=== PATIENT | female | born 1980 | race Caucasian/White ===

== ENCOUNTER 2016-12-07 10:30 | Emergency (ER) | payer OTHER ==
--- NOTE | 2016-12-07 11:49 | ER Document Report ---
HPI - HPI Patient complains to provider of: left hand pain Onset: Yesterday Onset/Duration: Persistent Quality of pain: Sharp Severity: Mild Pain Level: 2 Context: Patient presents emergency department with complaints of left dorsal pain that radiates up into her elbow. She reports she was opening some sausage yesterday with a knife and poked herself in the hand. She reports since that time she has had pain there and it radiates up into her elbow. No signs of infection. No erythema, warmth, swelling. Wound is closed. She has full range of motion, strong rn patient care, extension and flexion, she reports her tetanus is up-to-date. She denies other symptoms such as fever vomiting diarrhea. She has taken ibuprofen last night without relief of sx. Associated Symptoms: None Exacerbated by: Denies Relieved by: Denies Similar symptoms previously: No Recently seen / treated by doctor: No - REPRODUCTIVE Reproductive: DENIES: : - DERM Skin Color: Normal Past Medical History - General Information source: Patient Last Menstrual Period: couple weeks ago - Social History Smoking Status: Current Every Day Smoker Cigarette use (# per day): Yes Frequency of alcohol use: Occasional Drug Abuse: None Lives with: Family Family History: None Patient has suicidal ideation: No Patient has homicidal ideation: No Endocrine Medical History: Reports: Hx Hypothyroidism Renal/ Medical History: Denies: Hx Peritoneal Dialysis Past Surgical History: Reports: Hx Appendectomy, Hx Section, Hx Thyroid Surgery Vertical Provider Document - CONSTITUTIONAL Agree With Documented VS: Yes Exam Limitations: No Limitations General Appearance: WD/WN, Mild Distress - winces when hand palpated - INFECTION CONTROL TRAVEL OUTSIDE OF THE [place] IN LAST 30 DAYS: No - HEENT HEENT: Atraumatic, Normocephalic - NECK Neck: Supple - RESPIRATORY Respiratory: Breath Sounds Normal, No Respiratory Distress O2 Sat by Pulse Oximetry: 99 - CARDIOVASCULAR Cardiovascular: Regular Rate - MUSCULOSKELETAL/EXTREMETIES Musculoskeletal/Extremeties: MAEW, FROM, Tender - left hand dorsal ttp, reports radiating pain to elbow, brisk cap refill good radial pulse good rn patient care no obvious deformity no erythema no warmth no swelling 5 mm closed wound noted to dorsal area in between thumb and second digit on left hand - NEURO Level of Consciousness: Awake, Alert, Appropriate Motor/Sensory: No Motor Deficit - DERM Integumentary: Warm, Dry Adult Front & Back Diagram: 1 - reports ttp, radiating pain up to elbow, no s/s infection, no erythema, warmth, swelling Course - Re-evaluation Re-evalutation: 12/07/16 13:49 pt instructed on neg xray, monitor for s/s infection, fu with pcp she verbalized understanding - Vital Signs Vital signs: Temp Pulse Resp BP Pulse Ox 98.3 F 93 16 140/91 H 99 12/07/16 10:48 12/07/16 10:48 12/07/16 10:48 12/07/16 10:48 12/07/16 10:48 - Diagnostic Test Radiology reviewed: Image reviewed, Reports reviewed - Diagnostic report text EXAM DESCRIPTION: HAND LEFT 3 VIEWS COMPLETED DATE/TIME: 2016 12:31 pm REASON FOR STUDY: pain COMPARISON: None. EXAM PARAMETERS: NUMBER OF VIEWS: Three views. TECHNIQUE: AP, lateral and oblique radiographic images acquired of the left hand. LIMITATIONS: None. FINDINGS: MINERALIZATION : Normal. BONES: No acute fracture or dislocation. No worrisome bone lesions. JOINTS: No effusions. SOFT TISSUES: No soft tissue swelling. No foreign body. OTHER: No other significant finding. IMPRESSION: NEGATIVE STUDY OF THE LEFT HAND. NO RADIOGRAPHIC EVIDENCE OF ACUTE INJURY Discharge - Discharge Clinical Impression: Left hand pain, Elevated blood pressure reading Condition: Stable Disposition: HOME, SELF-CARE Instructions: Use of Opuo-Mqk-Diimtne Ibuprofen ([facility]) Additional Instructions: *You have been evaluated for left hand pain *Take ibuprofen as indicated for pain *Monitor your hand for signs of infection such as redness/swelling/warmth, increased pain *Follow up with your primary care provider next week for recheck *Return to ED for worsening condition, changes, needs Monitor your blood pressure. Your blood pressure was elevated today. This may be because you were anxious, in pain or because you need medication. It is important to follow up with your primary care provider for full evaluation. Forms: Elevated Blood Pressure
--- NOTE | 2016-12-07 12:51 | RADIOLOGY REPORT (SQ) ---
EXAM DESCRIPTION: HAND LEFT 3 VIEWS COMPLETED DATE/TIME: 12/07/2016 12:31 pm REASON FOR STUDY: pain COMPARISON: None. EXAM PARAMETERS: NUMBER OF VIEWS: Three views. TECHNIQUE: AP, lateral and oblique radiographic images acquired of the left hand. LIMITATIONS: None. FINDINGS: MINERALIZATION: Normal. BONES: No acute fracture or dislocation. No worrisome bone lesions. JOINTS: No effusions. SOFT TISSUES: No soft tissue swelling. No foreign body. OTHER: No other significant finding. IMPRESSION: NEGATIVE STUDY OF THE LEFT HAND. NO RADIOGRAPHIC EVIDENCE OF ACUTE INJURY. TECHNICAL DOCUMENTATION: JOB ID: [id number] [employer]- All Rights Reserved
[2016-12-07 13:06] VITALS: BP 122/76
== END 2016-12-07 13:06 | disposition home or self-care (01) ==
LOC: ER 10:30
DX: M79.642 Pain in left hand (principal); R03.0 Elevated blood-pressure reading, without diagnosis of hypertension; F17.210 Nicotine dependence, cigarettes, uncomplicated
CPT/HCPCS: 99283

== ENCOUNTER 2017-06-27 06:46 | Day surgery (SDC) | payer OTHER ==
[2017-06-17 12:29] LABS: HEMATOCRIT 40.9 % (36.0-47.0); HEMOGLOBIN 13.6 g/dL (12.0-15.5); HGB HCT DIFFERENCE -0.1; MEAN CORPUSCULAR HEMOGLOBIN 26.5 pg (27.0-33.4); MEAN CORPUSCULAR HGB CONC 33.2 g/dL (32.0-36.0); MEAN CORPUSCULAR VOLUME 80 fl (80-97); RED BLOOD COUNT 5.13 10^6/uL (3.72-5.28); RED CELL DISTRIBUTION WIDTH 16.3 % (11.5-14.0); WHITE BLOOD COUNT 15.3 10^3/uL (4.0-10.5)
[2017-06-17 12:36] LABS: APPEARANCE,URINE SLIGHTLY-CLOUDY; BILIRUBIN,URINE NEGATIVE (NEGATIVE); GLUCOSE, URINE NEGATIVE (NEGATIVE); KETONES,URINE NEGATIVE (NEGATIVE); LEUKOCYTE ESTERASE,URINE NEGATIVE (NEGATIVE); NITRITE,URINE NEGATIVE (NEGATIVE); PROTEIN,URINE NEGATIVE (NEGATIVE); URINE SPECIFIC GRAVITY 1.025; UROBILINOGEN,URINE NEGATIVE mg/dL (<2.0)
[2017-06-17 12:50] LABS: BACTERIA,URINE TRACE /HPF
[~2017-06-27 06:46] MED LIST: LACTATED RINGERS 1000 ML IV PRN; LIDOCAINE 0.5% INJ-PF (5 MG/ML) 50 ML SDV SUBCUT PRN
[2017-06-27] MEDS ORDERED: FENTANYL CITRATE INJ/PF 100 MCG/2 ML AMPUL ONE (08:52)
[2017-06-27] MEDS ORDERED: MIDAZOLAM 2 MG/2 ML INJ ONE (08:52)
[2017-06-27] MEDS ORDERED: KETAMINE HCL INJ 500 MG/10 ML VIAL ONE (08:52)
[2017-06-27] MEDS ORDERED: ACETAMINOPHEN 100 ML IV ONE (08:53)
[2017-06-27] MEDS ORDERED: PROPOFOL INJ 200 MG/20 ML VIAL IV ONE (08:53)
[2017-06-27] MEDS ORDERED: MORPHINE SULFATE 10 MG/ML INJ IV PRN (09:28)
[2017-06-27] MEDS ORDERED: PROMETHAZINE HCL INJ 25 MG/1 ML VIAL IV PRN ×2 (09:28)
[2017-06-27] MEDS ORDERED: FENTANYL CITRATE INJ/PF 100 MCG/2 ML AMPUL IV PRN ×3 (09:28)
[2017-06-27] MEDS ORDERED: OXYCODONE-ACETAMINOPHEN 5-325 MG TABLET PO PRN ×4 (09:28→10:10)
[2017-06-27] MEDS ORDERED: MEPERIDINE HCL/PF INJ 25 MG/1 ML DISP.SYRIN IV PRN (09:28)
[2017-06-27] MEDS ORDERED: DIPHENHYDRAMINE HCL 50 MG/ML VIAL IV PRN (09:28)
[2017-06-27] MEDS ORDERED: ONDANSETRON HCL INJ/PF 4 MG/2 ML SDV IV PRN (09:28)
[2017-06-27] MEDS ORDERED: KETOROLAC TROMETHAMINE INJ/PF 30 MG/1 ML SDV ONE (09:54)
[2017-06-27] MEDS ORDERED: RINGERS SOLUTION,LACTATED 1,000 ML IV PRN (10:09)
[2017-06-27] MEDS ORDERED: MORPHINE SULFATE 10 MG/ML INJ IM PRN (10:10)
[2017-06-27] MEDS ORDERED: IBUPROFEN 800 MG TABLET PO PRN (10:10)
[2017-06-27] MEDS ORDERED: OXYCODONE-ACETAMINOPHEN 5-325 MG TABLET ONE (10:25)
[2017-06-27 11:28] VITALS: BP 129/96
--- NOTE | 2017-07-03 06:58 | OPERATIVE REPORT E ---
Operative Report NAME: TEMO WOLFE : 1980 AGE: 37Y DATE OF SURGERY: 06/27/2017 ROOM: PREOPERATIVE DIAGNOSIS: Abnormal uterine bleeding. POSTOPERATIVE DIAGNOSIS: Abnormal uterine bleeding. SURGEON: HERMELINDA MARTIN M.D. ANESTHESIA: Dr. Muhammad with [facility]. FINDINGS: A blackened endometrium, stenotic uterus. Uterus sounded to approximately 10 cm. COMPLICATIONS: None. ESTIMATED BLOOD LOSS: 10 mL. SPECIMENS REMOVED: Endocervical curettage. PROCEDURE: Hysteroscope D and C. PROCEDURE IN DETAIL: Patient was taken to the operating room and prepared and draped in a normal sterile fashion in the dorsal lithotomy position. Under sterile conditions, an in-and-out cath was performed of approximately 20 mL of clear urine. A sterile speculum was placed into the vagina and the cervix was prepped with Betadine. The anterior lip of the cervix was grasped with a single-toothed tenaculum. The cervix was then dilated using the smallest dilators until I was able to accommodate a hysteroscope. The cervix was quite stenotic and this did take the microscopic dilators until I was able to dilate to a 13-[place] to accommodate the hysteroscope. The hysteroscope was then inserted with the above findings noted of the blackened endometrium at the fundus of the uterus. A working curette was then introduced after removal of the hysteroscope and the endometrial cavity was carefully curettaged several times to obtain adequate specimen. Specimen was then passed off and the hysteroscope was reinserted to confirm that all of the concerning endometrium was removed. The hysteroscope was then removed as well as the speculum and the tenaculum. Patient tolerated procedure well. Sponge, lap, and needle counts were correct x2. Patient was taken to recovery in stable condition. DICTATING PHYSICIAN: HERMELINDA MARTIN M.D. [id number] PHY#: [id number] ID: [id number] JOB#: [id number] ACCT: [id number] cc:HERMELINDA MARTIN M.D. >
== END 2017-06-27 11:30 | disposition home or self-care (01) ==
LOC: OROUT 06:46
PROVIDERS: ATTEND Obstetrics & Gynecology
PROC: 0UDB8ZX Extraction of Endometrium, Via Natural or Artificial Opening Endoscopic, Diagnostic (ICD-10-PCS; principal; 2017-06-27 09:00)
DX: N92.6 Irregular menstruation, unspecified (principal); R10.2 Pelvic and perineal pain; F17.210 Nicotine dependence, cigarettes, uncomplicated; E08.9 Diabetes mellitus due to underlying condition without complications; Z88.1 Allergy status to other antibiotic agents
CPT/HCPCS: 36415; 85027; 81025; 81001; 88305 ×2; 58558; J2250; J3010; J3490; J1885; J2704; J0131; 952